=== PATIENT | male | born 1955 | race Caucasian/White ===

== ENCOUNTER → 2017-11-29 12:41 | Outpatient (CLI) | payer OTHER, SELFPAY | PROVIDERS: Family Provider Internal Medicine; PCP Internal Medicine; Visit Provider Internal Medicine | DX: R69 Illness, unspecified (principal) | CPT/HCPCS: 82140 ==

== ENCOUNTER → 2017-12-30 11:49 | Outpatient (CLI) | payer MEDICAID, SELFPAY ==
[2017-12-30 14:03] LABS: Absolute Lymphocyte Count 1.16 X10^3/ul (0.83-4.51); Absolute Neutrophil Count 1.6 X10^3/uL (2.0-7.7); Basophil# 0.04 X10^3/uL; Basophil% 1.2 % (0-1); Eosinophil# 0.21 X10^3/uL; Eosinophils% 6.1 % (0-5); Hematocrit 43.1 % (40-54); Hemoglobin 14.3 g/dl (13.0-16.5); Lymphocyte # 1.16 X10^3/ul (4.0); Lymphocyte % 33.8 % (19-41); Mean Corp Hgb Conc 33.2 g/gl (32-36); Mean Corpuscular Hgb 36.4 pg (27.0-32.0); Mean Corpuscular Volume 109.7 fL (80-94); Mean Platelet Vol. 9.5 fl (6.2-12.0); Monocyte# 0.43 X10^3/uL; Monocyte% 12.5 % (0-10); Neutrophil # 1.58 X10^3/uL (2.7-7.7); Neutrophil % 46.1 % (47-70); Platelet Count 173 K/mm3 (150-450); RBC Distribution Width CV 14.8 % (11.6-14.6); RBC Distribution Width SD 59.7 fl (35.1-43.9); Red Blood Count 3.93 M/mm3 (4.6-6.2); White Blood Count 3.4 K/mm3 (4.4-11.0)
[2017-12-30 14:16] LABS: POSITIVE COUNT NO; POSITIVE DIFFERENTIAL NO; POSITIVE MORPHOLOGY NO
[2017-12-30 14:17] LABS: ALB/GLOB Ratio 0.9 RATIO (0.9-2.4); AST(SGOT) 390 U/L (15-37); Alanine Aminotransfer ALT/SGPT 137 U/L (16-61); Albumin, Serum 3.6 g/dL (3.2-5.0); Alkaline Phosphatase 172 U/L (45-117); Anion Gap 8 (5-15); BUN 8 mg/dL (7-18); BUN/Creat Ratio 6.8 RATIO (10-20); Calcium,Total 10.3 mg/dL (8.5-10.1); Chloride 104 mmol/L (98-107); Creatinine, Serum 1.17 mg/dL (0.70-1.30); EST Glomerular Filtration Rate 68 mL/min (>60); Est Glom Filt Rate - Afr Amer 82 mL/min (>60); Globulin 4.1 g/dL (2.2-4.2); Glucose 97 mg/dL (74-106); Potassium 3.6 mmol/L (3.5-5.1); Protein, Total 7.7 g/dL (6.4-8.2); Sodium Level 141 mmol/L (136-145)
== END ==
PROVIDERS: Family Provider Internal Medicine; PCP Internal Medicine; Visit Provider Dermatology Pediatric Dermatology
DX: L30.9 Dermatitis, unspecified (principal)
CPT/HCPCS: 36415; 80053; 85025

== ENCOUNTER → 2018-01-08 14:04 | Outpatient (CLI) | payer OTHER, MEDICAID, SELFPAY ==
--- NOTE | 2018-01-08 14:07 | VDLE_ITS ---
Reason For Study: edema RIGHT LEFT GSV is normal. GSV is normal. CFV is compressible, spontaneous, phasic, CFV is compressible, spontaneous, phasic, competent and demonstrates normal competent, and demonstrates normal augmentation. augmentation. FV is compressible, spontaneous, phasic, FV is compressible, spontaneous, phasic, competent and demonstrates normal competent and demonstrates normal augmentation. augmentation. POP V is compressible, spontaneous, phasic, POP V is compressible, spontaneous, phasic, competent and demonstrates normal competent and demonstrates normal augmentation. augmentation. T/P Trunk is compressible. T/P Trunk is compressible. PTV is compressible. PTV is compressible. RT PerV is compressible. LT PerV is compressible. Procedure Exam performed in department. The exam was diagnostic. A preliminary report was called and/or faxed to Sang Ambriz. Interpretation Summary Deep veins of the lower extremities are bilaterally patent and compressible segmentally. There is no evidence of deep vein thrombosis on either side. Valvular competence appears intact within the proximal deep venous systems bilaterally. The greater saphenous veins appear bilaterally patent and compressible segmentally. Mrdering Physician: Pb, Performed By: Ryan Rothman RVT
== END ==
PROVIDERS: Family Provider Physician Assistant; PCP Physician Assistant; Visit Provider Physician Assistant
DX: R60.0 Localized edema (principal)
CPT/HCPCS: 93970

== ENCOUNTER 2020-08-03 17:31 | Emergency (ER) | payer MEDICAID, SELFPAY ==
[2020-08-03 17:32] VITALS: BP 160/97; PULSE 117; RESP 16; TEMP 36.6; O2SAT 97; BMI 19.0
--- NOTE | 2020-08-03 17:39 | ED.RN ---
PER PT [facility]
--- NOTE | 2020-08-03 17:51 | EKG12_ITS ---
Test Reason : CONFUSION Blood Pressure : / mmHG Vent. Rate : 098 BPM Atrial Rate : 098 BPM P-R Int : 116 ms QRS Dur : 064 ms QT Int : 354 ms P-R-T Axes : 047 018 067 degrees QTc Int : 451 ms Normal sinus rhythm Normal ECG Confirmed by REESE OCONNOR, JIE ([id number]), photography editor DONALD FRIEDMAN ([id number]) on 08/10/2020 12:50:09 P M Referred By: JULIO Confirmed By:EDELMIRA LEIGH MD
--- NOTE | 2020-08-03 17:51 | CT_ITS ---
STUDY: CT BRAIN WITHOUT CONTRAST REASON FOR EXAM: Male, 65 years old. Confusion. RADIATION DOSAGE (If Supplied By Facility): CTDIvol = ( 44.99 ) mGy, DLP = ( 863.60 ) mGycm TECHNIQUE: Transaxial CT imaging of the brain was performed without administration of intravenous contrast material. Individualized dose optimization techniques were used for this CT. COMPARISON: No relevant priors. FINDINGS: Normal soft tissue structures. Normal calvarium. There is mild age-appropriate cerebral atrophy with widening of the extra-axial spaces and ventricular dilatation. Normal white matter tracts of the cerebral hemispheres. Normal basal ganglia and thalami. Normal brainstem. Normal cerebellum. There is no intracranial hemorrhage. There are no findings of an acute ischemic infarction. Normal visualized paranasal sinuses. CT/Brain/Head without Contrast IMPRESSION: No acute intracranial or calvarial abnormality. Electronically Signed: Xavier Dupont DO at 18:29 EDT Tel [phone], Service support ,
--- NOTE | 2020-08-03 17:54 | ED.RN ---
[facility] stated if he is cleared to return to their facility to contact them and they would send a cab for him.
--- NOTE | 2020-08-03 17:56 | ED.RN ---
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 [facility] WANT[facility] CONTACTED AND WAS GOING TO COME EVALUATE PT.
--- NOTE | 2020-08-03 17:58 | NURSING ---
NO OLD EKGS
--- NOTE | 2020-08-03 18:06 | ED.VIS.GEN ---
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 Patient told me that he is currently staying at [address] what in fact he is living at [facility]. His mother was recently put into a dementia facility. He was removed from the household so it could be sold. At that time he was brought to the [facility] by his neighbor. Since being there he has been having a hard time finding the bathroom. Has been repeating himself constantly. Apparently had difficulty opening a door. Patient states he did fall last night. He believes that he struck the right side of his head. He denies being on anticoagulation. He did have a headache last night but this is since resolved. Denies any headache or vision changes. No issues with word finding. No chest pain or shortness of breath. No abdominal pain or back pain. No neck pain. Patient has no complaints at time of arrival. He states he does drink multiple beers per day. He has not drank over the past 3 days. He does occasionally smoke marijuana. Patient does have stool down his leg. He believes that he has an episode of colitis. He has not any fevers or chills. No urinary symptoms. Did have one episode of diarrhea today. Past Medical History - Allergies and Home Meds Allergies/Adverse Reactions: Allergies No Known Allergies Allergy (Verified 08/03/20 17:34) Primary Care Physician: Jackie Ambriz PA [Primary Care Provider] - 2 Days Prior records reviewed: Yes Smoking Status: Current every day smoker Alcohol: Heavy Drugs: Marijuana Review of Systems All systems negative except as indicated General: Denies: Chills, Fever, Sweats Eyes: Denies: Visual changes - bilaterally, Diplopia ENT: Denies: Rhinorrhea, Sore throat Cardiovascular: Denies: Chest pain, Palpitations Respiratory: Denies: Dyspnea, Cough, Dyspnea on exertion Gastrointestinal: Reports: Diarrhea. Denies: Abdominal pain, Nausea, Vomiting Genitourinary: Denies: Dysuria, Hematuria, Frequency Musculoskeletal: Denies: Back pain, Extremity Pain Skin: Denies: Rash, Wounds Neurological: Denies: Headache, Weakness, Numbness Psych: Denies: Suicidal thoughts, Suicidal ideations Physical Exam Vital Signs/Narrative: Vital Signs Temp Pulse Resp BP Pulse Ox 08/03/20 17:32 98 F 117 H 16 160/97 H 97 Inital Vital Signs reviewed: Yes General: Well nourished, Well developed, Unkempt, No Acute Distress Head: Normocephalic, Atraumatic Eyes: Perrl, EOMI ENT: Moist mucous membranes, No rhinorrhea Neck: Supple, Nontender Cardiovascular: Regular rate, Regular rhythm, No murmurs Respiratory: No distress, CTA bilaterally, Chest nontender Abdomen: Soft, Nontender, Nondistended, Normal bowel sounds Back: Nontender, Normal Inspection Extremities: Nontender, No edema Skin: Normal color, No rash Neurological: Alert, Oriented x3, Cranial nerves II-XII grossly intact, Normal Strength, Normal Sensation Psychological: Normal affect, Normal Mood, - - Patient answers questions appropriately. He is cooperative with exam. Diagnostic/Tx/Re-eval - EKG Initial EKG Interpretation: - - Rate of 98 bpm and normal sinus rhythm. Normal intervals. Normal axis. No ST elevations or depressions appreciated. No T wave abnormalities. - Medical Decision Making Patient presents to the ED for wellness check as he was confused at the [facility] [employer]. He states he did have a fall yesterday. Will check a CT scan of his head along with basic lab work. Patient does not appear to be confused here in the ED besides saying [address] as opposed to the [employer]. He is alert and oriented here. Answering questions appropriately. CT scan of his head did not reveal any acute intracranial abnormality. Lab work did not show any significant abnormality besides a low hemoglobin. Patient was not aware of this before in the past. Denies any black tarry stools. He needs to follow-up with us by his PCP. Could relate to his alcohol use. Otherwise no reason to keep patient here in the hospital. [facility] just wanted to have them checked out and they are agreeable to taking him back to their facility at this time. Warning signs and symptoms for which to return to the ED are reviewed with him. Patient will be discharged home in stable condition. ED Disposition - Plan for ED Patient: Disposition: Home or Assisted Living Diagnosis: Confusion, Anemia Instructions: ED Confusion Referrals: Jackie Ambriz PA [Primary Care Provider] - 2 Days
[2020-08-03 18:29] LABS: ALB/GLOB Ratio 0.9 RATIO (0.9-2.4); AST(SGOT) 19 U/L (15-37); Alanine Aminotransfer ALT/SGPT 19 U/L (16-61); Albumin, Serum 3.7 g/dL (3.2-5.0); Alkaline Phosphatase 100 U/L (45-117); Anion Gap 9 (5-15); BUN 13 mg/dL (7-18); Calcium,Total 9.9 mg/dL (8.5-10.1); Chloride 103 mmol/L (98-107); Creatinine, Serum 1.08 mg/dL (0.70-1.30); EST Glomerular Filtration Rate 73 mL/min (>60); Est Glom Filt Rate - Afr Amer 89 mL/min (>60); Estimated Creatinine Clearance 62.88 ml/min; Glucose 86 mg/dL (74-106); Potassium 4.3 mmol/L (3.5-5.1); Protein, Total 7.7 g/dL (6.4-8.2); Sodium Level 137 mmol/L (136-145)
[2020-08-03 18:35] LABS: Alcohol, Blood (Medical)-Serum < 3.0 mg/dL
[2020-08-03 19:00] LABS: Absolute Lymphocyte Count 1.28 X10^3/uL (0.83-4.51); Absolute Neutrophil Count 7.2 X10^3/uL (2.0-7.7); Basophil# 0.06 X10^3/uL; Basophil% 0.6 % (0-1); Eosinophil# 0.01 X10^3/uL; Eosinophils% 0.1 % (0-5); Hematocrit 31.5 % (40-54); Hemoglobin 9.6 g/dL (13.0-16.5); Lymphocyte # 1.28 X10^3/ul (4.0); Lymphocyte % 13.2 % (19-41); Mean Corp Hgb Conc 30.5 g/dL (32-36); Mean Corpuscular Hgb 24.2 pg (27.0-32.0); Mean Corpuscular Volume 79.5 fL (80-94); Mean Platelet Vol. 9.1 fl (6.2-12.0); Monocyte# 1.04 X10^3/uL; Monocyte% 10.8 % (0-10); NRBC Flagged by Analyzer 0 % (0-5); Neutrophil # 7.24 X10^3/uL (2.7-7.7); Neutrophil % 74.9 % (47-70); Platelet Count 516 K/mm3 (150-450); RBC Distribution Width CV 18.6 % (11.6-14.6); RBC Distribution Width SD 53.5 fl (35.1-43.9); Red Blood Count 3.96 M/mm3 (4.6-6.2); White Blood Count 9.7 K/mm3 (4.4-11.0)
[2020-08-03 19:12] LABS: Color, Urine Yellow (Yellow); Glucose, Dipstick Normal (Normal); Ketone-Dipstick 15 mg/dl (Negative); Leukocyte Esterase-Dipstick 25 /ul (Negative); Nitrite-Dipstick Negative (Negative); Occult Blood-Urine Negative /ul (Negative); Protein-Dipstick 15 mg/dl (Negative); Urine Bilirubin Dipstick Negative (Negative); Urine Clarity Sl. Cloudy (Clear); Urine Urobilinogen 1 mg/dl (Normal)
[2020-08-03 19:25] LABS: Amphetamine Urine VISTA NEGATIVE (<1000 ng/mL); Barbiturate Urine VISTA NEGATIVE (< 200 ng/mL); Benzodiazepine Urine VISTA NEGATIVE (< 200 ng/mL); Cocaine Urine VISTA NEGATIVE (< 300 ng/mL); Ecstacy Urine VISTA NEGATIVE (< 500 ng/mL); Methadone Urine VISTA NEGATIVE (< 300 ng/mL); PCP Urine VISTA NEGATIVE (< 25 ng/mL); THC Urine VISTA NEGATIVE (< 50 ng/mL); Vista UDS pH Range 6
--- NOTE | 2020-08-03 19:47 | CM.ED ---
SOCIAL WORK Informant: Charge Nurse, Shaylee Reason for Consult: Discharge planning Upon patient's arrival to ER, nursing received call from [facility] regarding patient. This worker followed up with [facility], spoke with Nehal. Per Nehal, patient came to the [facility] yesterday. Patient was brought to the [facility] by a neighbor. Nehal reports patient had been disoriented and confused. Patient had to be shown multiple times where the bathroom and dorm was located. Nehal states her boss had spoken with Kin with [facility] who states patient is on her caseload and last met with patient in May. Per Nehal, Kin had noted that patient's mentation was normal. This worker met with patient in room. Introduced role and reason for referral. Patient noted to have stool on leg of pants sitting on chair. Patient states has been staying at the [facility] for under a week. Patient states prior to staying at the [facility], had lived with his mother in [place]. Patient reports mother is currently living in a jail. Patient states primary care doctor is through the [facility], Dr. Ambriz. Patient admits to history of depression and states doesn't everyone get depressed from time to time. Patient states depression is not treated. Patient admits to history of alcohol and marijuana use and states last drink was a few days ago. Patient gave permission for this worker to update [facility] on status as he wishes to return to the [facility] upon discharge. Collaboration with Dr. Villa. Patient is medically cleared. Call to [facility] to update on the above. [facility] will accept patient back to halfway and will set up transport through [employer]. Call to Kin with [facility]. Left message with this worker's call back information. Plan: Return to the [facility] Chad Pretty, LUNCHROOM OPERATOR, SECTION GANG
== END 2020-08-03 20:01 | disposition home or self-care (01) ==
PROVIDERS: Emergency Provider Emergency Medicine; PCP Physician Assistant
DX: R41.0 Disorientation, unspecified (principal); D64.9 Anemia, unspecified; F17.200 Nicotine dependence, unspecified, uncomplicated
CPT/HCPCS: 36415; 70450; 80048; 80053; 80307; 80320; 81002; 84484; 85025; 93005; 99283; G0480

== ENCOUNTER 2020-08-25 12:56 | Emergency (ER) | payer MEDICAID, SELFPAY ==
[2020-08-25 12:57] VITALS: BP 147/95; PULSE 79; RESP 17; TEMP 36.2; O2SAT 100; BMI 20.9
--- NOTE | 2020-08-25 13:16 | ED.DCSUM_ITS ---
History of Present Illness <Ant De Leon - Last Filed: 08/25/20 17:09> Informant: Patient Onset: Weeks Narrative: 65-year-old male with past medical history of hypertension, chronic alcoholism presents with diarrhea and confusion. He has been having nonbloody diarrhea almost daily for the last month. He also occasionally feels confused like he does not remember where he is going or where he is at. He states he drinks 2 beers on weekdays and 10-12 beers on weekend days. Denies any change in alcohol use. Admits to unintentional 50 lb weight loss over last 6 months. Denies fevers, chills, nausea, vomiting, chest pain, cough, or abdominal pain. He is not sure if he has liver disease. <Ruthann Caballero - Last Filed: 08/25/20 17:49> Chief Complaint: Diarrhea Past Medical History <Ant De Leon - Last Filed: 08/25/20 17:09> Lives: - - Hypertension Smoking Status: Current every day smoker <Ruthann Caballero - Last Filed: 08/25/20 17:49> - Allergies and Home Meds Allergies/Adverse Reactions: Allergies iodine Adverse Reaction (Verified 08/25/20 12:56) Rash GANDARA MY SKIN Primary Care Physician: Jackie Ambriz, PA [Primary Care Provider] - Review of Systems General: Denies: Chills, Fever, Sweats Eyes: Denies: Visual changes - bilaterally, Diplopia ENT: Denies: Rhinorrhea, Sore throat Cardiovascular: Denies: Chest pain, Palpitations Respiratory: Denies: Dyspnea, Cough, Dyspnea on exertion Gastrointestinal: Reports: Diarrhea. Denies: Abdominal pain, Nausea, Vomiting, Constipation, Melena, Hematochezia Genitourinary: Denies: Dysuria, Hematuria, Frequency Skin: Reports: Wounds. Denies: Rash Neurological: Denies: Headache, Weakness, Numbness <Ruthann Caballero - Last Filed: 08/25/20 17:49> Physical Exam Vital Signs/Narrative: Vital Signs Pulse Resp BP Pulse Ox 08/25/20 16:31 87 16 152/91 H 99 08/25/20 15:22 16 <Ant De Leon - Last Filed: 08/25/20 17:09> Vital Signs/Narrative: Vital Signs Temp Pulse Resp BP Pulse Ox 08/25/20 12:57 97.2 F L 79 17 147/95 H 100 Inital Vital Signs reviewed: Yes General: Well nourished, Well developed, No Acute Distress Head: Normocephalic, Atraumatic Eyes: EOMI ENT: Moist mucous membranes, No rhinorrhea Neck: Supple, Nontender Cardiovascular: Regular rate, Regular rhythm, No murmurs Respiratory: No distress, CTA bilaterally, Chest nontender Abdomen: Soft, Nontender, Nondistended, Normal bowel sounds Skin: Normal color Neurological: Alert, Oriented x3, Cranial nerves II-XII grossly intact, Normal Strength, Normal Sensation Psychological: Normal affect, Normal Mood <Ruthann Caballero - Last Filed: 08/25/20 17:49> Diagnostic/Tx/Re-eval - Medical Decision Making I supervised the PA and have performed my own pertinent history and physical. Results and treatment plan were discussed. HPI: Patient is a poor informant. Adolfo Ambriz called and reports that he saw the patient for the first time in 2 years today. Patient was very confused. Patient relays to me that he does feel confused and it has been that way for a while. He does have a history of alcoholism and tells me that he has been drinking again for approximately 8 months. He reports that he is currently staying at [address]. Only other complaint is diarrhea. PE: Vitals: Stable. Afebrile. General: Well-nourished and well-developed. Head: Normocephalic atraumatic. Neck: Supple, no lymphadenopathy. No JVD. Nontender. Cardiovascular: Regular rate and rhythm. No murmurs. Respiratory: No respiratory distress. Clear to auscultation bilaterally. Abdominal: Soft, nontender, nondistended, normal bowel sounds. No guarding, rebound, or peritoneal signs. Back: Nontender. Extremities: Nontender, no edema. Skin: Normal color, no rash. Neurologic: Alert and oriented ?3. Cranial nerves II through XII are intact. Normal strength and sensation. Psych: Normal affect. Emergency Department course: Patient was discussed with case management. They have seen him and actually agreed of what he is set on his history is not true. The patient is not staying at [address] he staying at [facility]. She contacted the [facility] and they are fine taking him back. Treatment Plan: [facility] contacted [facility] and they report that they will place him in 3 days. They are happy to take him in the meantime. I suspect that his confusion is chronic and due to his alcohol abuse. I do not feel that admitting him to the hospital is indicated. This note was generated with [employer] dictation software. It may contain incorrect words, spelling, and punctuation that were not noted in review of the chart prior to signing. <Ant De Leon - Last Filed: 08/25/20 17:09> Clinical Impression(s) from Imaging Studies Brain CT 08/25/20 14:23 IMPRESSION: Chronic involutional changes of the brain. Electronically Signed: Roesndo Deshaun, at 15:17 EDT , Service support , Laboratory Data 08/25/20 08/25/20 08/25/20 13:20 13:20 13:25 WBC 7.7 RBC 4.26 L Hgb 9.9 L Hct 33.6 L MCV 78.9 L MCH 23.2 L MCHC 29.5 L RDW Std Deviation 50.8 H RDW Coeff of Cassandra 17.7 H Plt Count 497 H MPV 8.5 Immature Gran % (Auto) 0.400 Neut % (Auto) 65.7 Lymph % (Auto) 20.6 Carlton % (Auto) 10.7 H Eos % (Auto) 1.7 Baso % (Auto) 0.9 Absolute Neuts (auto) 5.0 Absolute Lymphs (auto) 1.58 Nucleated RBC % 0 Sodium 137 Potassium 4.2 Chloride 105 Carbon Dioxide 26.0 Anion Gap 6 BUN 9 Creatinine 1.06 Estim Creat Clear Calc 70.48 Est GFR (MDRD) Af Amer 91 Est GFR (MDRD) Non-Af 75 BUN/Creatinine Ratio 8.5 L Glucose 90 Calcium 9.5 Total Bilirubin 0.40 AST 14 L ALT 18 Alkaline Phosphatase 93 Ammonia < 10.0 L Total Protein 7.6 Albumin 3.6 Globulin 4.0 Albumin/Globulin Ratio 0.9 Lipase 129 - Medical Decision Making Presented with chronic diarrhea and complaint of intermittent confusion. He appears well nontoxic. Vital signs within normal limits. AOx4 here with a normal neurological exam. After conversations with him he did seem more confused as he keeps stating he is staying at [facility] but he is known to be staying at [facility]. Labs show chronic anemia with hemoglobin of 9.9, otherwise normal. Ammonia within normal limits. With serial negative abdominal exams there is no indication for imaging. CT brain shows chronic changes. At this time I feel he is stable for outpatient follow-up for his chronic diarrhea. Patient was discussed with case management who contacted [facility]. [facility] is contacting [facility] and they state they are fine with having him there this weekend and [facility] will place him on Friday. At this time he has no indication for admission to the hospital. He was discharged back to [facility] in stable condition. <Ruthann Caballero - Last Filed: 08/25/20 17:49> ED Disposition <Ant De Leon - Last Filed: 08/25/20 17:09> <Ruthann Caballero - Last Filed: 08/25/20 17:49> - Plan for ED Patient: Disposition: Home or Assisted Living Diagnosis: Chronic diarrhea Instructions: Treating Diarrhea Referrals: Jackie Ambriz, PA [Primary Care Provider] -
[2020-08-25 13:35] LABS: Absolute Lymphocyte Count 1.58 X10^3/uL (0.83-4.51); Basophil# 0.07 X10^3/uL; Basophil% 0.9 % (0-1); Eosinophil# 0.13 X10^3/uL; Eosinophils% 1.7 % (0-5); Hematocrit 33.6 % (40-54); Hemoglobin 9.9 g/dL (13.0-16.5); Lymphocyte # 1.58 X10^3/ul (4.0); Lymphocyte % 20.6 % (19-41); Mean Corp Hgb Conc 29.5 g/dL (32-36); Mean Corpuscular Hgb 23.2 pg (27.0-32.0); Mean Corpuscular Volume 78.9 fL (80-94); Mean Platelet Vol. 8.5 fl (6.2-12.0); Monocyte# 0.82 X10^3/uL; Monocyte% 10.7 % (0-10); NRBC Flagged by Analyzer 0 % (0-5); Neutrophil # 5.04 X10^3/uL (2.7-7.7); Neutrophil % 65.7 % (47-70); Platelet Count 497 K/mm3 (150-450); RBC Distribution Width CV 17.7 % (11.6-14.6); RBC Distribution Width SD 50.8 fl (35.1-43.9); Red Blood Count 4.26 M/mm3 (4.6-6.2); White Blood Count 7.7 K/mm3 (4.4-11.0)
[2020-08-25 13:48] LABS: ALB/GLOB Ratio 0.9 RATIO (0.9-2.4); AST(SGOT) 14 U/L (15-37); Alanine Aminotransfer ALT/SGPT 18 U/L (16-61); Albumin, Serum 3.6 g/dL (3.2-5.0); Alkaline Phosphatase 93 U/L (45-117); Anion Gap 6 (5-15); BUN 9 mg/dL (7-18); BUN/Creat Ratio 8.5 RATIO (10-20); Calcium,Total 9.5 mg/dL (8.5-10.1); Chloride 105 mmol/L (98-107); Creatinine, Serum 1.06 mg/dL (0.70-1.30); EST Glomerular Filtration Rate 75 mL/min (>60); Est Glom Filt Rate - Afr Amer 91 mL/min (>60); Estimated Creatinine Clearance 70.48 ml/min; Glucose 90 mg/dL (74-106); Lipase 129 U/L (73-393); Potassium 4.2 mmol/L (3.5-5.1); Protein, Total 7.6 g/dL (6.4-8.2); Sodium Level 137 mmol/L (136-145)
[2020-08-25 14:06] LABS: Ammonia < 10.0 umol/L (11-32)
--- NOTE | 2020-08-25 14:23 | CT_ITS ---
STUDY: CT BRAIN WITHOUT CONTRAST REASON FOR EXAM: Male, 65 years old. Confusion, weight loss, ETOH abuse, hypertension. RADIATION DOSAGE (If Supplied By Facility): CTDIvol = ( 44.99 ) mGy, DLP = ( 846.73 ) mGycm TECHNIQUE: Transaxial CT imaging of the brain was performed without administration of intravenous contrast material. Individualized dose optimization techniques were used for this CT. COMPARISON: Comparison is made with prior study dated 07/14/2020. FINDINGS: Normal soft tissue structures. Normal calvarium. There is mild cerebral atrophy with widening of the extra-axial spaces and ventricular dilatation. Normal white matter tracts of the cerebral hemispheres. Normal basal ganglia and thalami. Normal brainstem. Normal cerebellum. There is no intracranial hemorrhage. There are no findings of an acute ischemic infarction. Atherosclerotic calcification of the cavernous portions of the internal carotid arteries bilaterally. Normal visualized paranasal sinuses. CT/Brain/Head without Contrast IMPRESSION: Chronic involutional changes of the brain. Electronically Signed: Rosendo Meade, at 15:17 EDT , Service support ,
[2020-08-25 15:22] VITALS: RESP 16
[2020-08-25 16:31] VITALS: BP 152/91; PULSE 87; RESP 16; O2SAT 99
[2020-08-25 17:10] VITALS: RESP 16
== END 2020-08-25 17:12 | disposition home or self-care (01) ==
PROVIDERS: Emergency Provider Physician Assistant; PCP Physician Assistant
DX: K52.9 Noninfective gastroenteritis and colitis, unspecified (principal); I10 Essential (primary) hypertension; F10.20 Alcohol dependence, uncomplicated; Y90.9 Presence of alcohol in blood, level not specified; F17.200 Nicotine dependence, unspecified, uncomplicated
CPT/HCPCS: 70450; 80048; 80053; 82140; 83690; 85025; 99281; 99284; A4216

== ENCOUNTER 2020-10-14 23:04 | Emergency (ER) | payer MEDICAID, SELFPAY ==
[2020-10-14 23:05] VITALS: BP 144/89; PULSE 71; RESP 10; TEMP 36.9; O2SAT 98; BMI 21.9
--- NOTE | 2020-10-14 23:06 | EKG12_ITS ---
Test Reason : CHEST OTHER Blood Pressure : / mmHG Vent. Rate : 076 BPM Atrial Rate : 076 BPM P-R Int : 120 ms QRS Dur : 070 ms QT Int : 386 ms P-R-T Axes : 034 039 063 degrees QTc Int : 434 ms Normal sinus rhythm Normal ECG Confirmed by LEANDRA OCONNOR, CHA ([id number]), story editor DONALD FRIEDMAN ([id number]) on 10/17/2020 8:42:23 AM Referred By: JESUS Confirmed By:CHA MOBLEY MD
[2020-10-14 23:09] VITALS: O2SAT 99
[2020-10-14] MEDS: Aspirin 81 MG TAB.CHEW 324 MG PO (23:14)
--- NOTE | 2020-10-14 23:20 | RAD_ITS ---
STUDY: X-RAY CHEST REASON FOR EXAM: Male, 65 years old. Bilateral rib pain starting 1.5 hrs ago. Painful to take deep inspiration for x-ray. No other chest complaints. TECHNIQUE: Single frontal view of the chest. COMPARISON: None. FINDINGS: There is no focal consolidation. Normal size heart. Normal mediastinum and graeme. Normal visualized pulmonary arteries. Normal visualized aortic arch and descending thoracic aorta. Normal visualized thoracic spine. Normal visualized ribs, clavicles, and shoulders. There is no demonstrated abnormality of the visualized soft tissue structures of the upper abdomen. RAD/Chest 1 View (Portable) IMPRESSION: No acute cardiopulmonary process. Electronically Signed: Jess Bermeo MD at 23:41 EST Tel , Service support ,
[2020-10-14 23:37] LABS: Absolute Lymphocyte Count 1.92 X10^3/uL (0.83-4.51); Absolute Neutrophil Count 3.7 X10^3/uL (2.0-7.7); Basophil# 0.09 X10^3/uL; Basophil% 1.4 % (0-1); Eosinophil# 0.01 X10^3/uL; Eosinophils% 0.2 % (0-5); Hematocrit 31.4 % (40-54); Hemoglobin 9.2 g/dL (13.0-16.5); Lymphocyte # 1.92 X10^3/ul (4.0); Lymphocyte % 29.9 % (19-41); Mean Corp Hgb Conc 29.3 g/dL (32-36); Mean Corpuscular Hgb 22.2 pg (27.0-32.0); Mean Corpuscular Volume 75.8 fL (80-94); Mean Platelet Vol. 8.9 fl (6.2-12.0); Monocyte# 0.65 X10^3/uL; Monocyte% 10.1 % (0-10); NRBC Flagged by Analyzer 0 % (0-5); Neutrophil # 3.68 X10^3/uL (2.7-7.7); Neutrophil % 57.3 % (47-70); Platelet Count 437 K/mm3 (150-450); RBC Distribution Width CV 18.6 % (11.6-14.6); RBC Distribution Width SD 50.1 fl (35.1-43.9); Red Blood Count 4.14 M/mm3 (4.6-6.2); White Blood Count 6.4 K/mm3 (4.4-11.0)
[2020-10-14 23:40] LABS: Anion Gap 4 (5-15); BUN 14 mg/dL (7-18); BUN/Creat Ratio 13.3 RATIO (10-20); Chloride 109 mmol/L (98-107); Creatinine, Serum 1.05 mg/dL (0.70-1.30); EST Glomerular Filtration Rate 76 mL/min (>60); Est Glom Filt Rate - Afr Amer 92 mL/min (>60); Estimated Creatinine Clearance 74.66 ml/min; Glucose 92 mg/dL (74-106); Potassium 4.3 mmol/L (3.5-5.1); Sodium Level 141 mmol/L (136-145)
--- NOTE | 2020-10-15 00:09 | ED.DCSUM_ITS ---
- ER Visit Summary Date of Service: 10/15/20 Chief Complaint: Bilateral rib cage pain History of Present Illness: The patient is a 65 M history of hypertension, high cholesterol and anemia. Patient smokes a pack of cigarettes a day. He has no known prior cardiac history. He has never had a heart cath. Currently is residing at the [facility]. Patient states he fell 2 days ago landing on asphalt. Thought it was fine. Tonight he awoke from sleep about 2 hours prior to arrival with bilateral rib cage pain. Denies any shortness of breath. No history of DVT or PE. No recent travel, surgery or immobilization. No hemoptysis. No leg pain or swelling. There is no radiation of the pain. It is worse with movement. He denies any fever or chills. Physical Examination: Older male vital signs stable afebrile. Pulse ox 99% on room air no signs of hypoxia. HEENT exam unremarkable. Neck nontender no lymphadenopathy. Lungs clear to auscultation bilaterally. Heart regular rhythm rate about 80 no murmur. Chest wall is reproducibly tender along both rib cages primarily anterior lateral in the lower aspects. There is no crepitance or subcu air. There is no appreciable bruising. There is no bony deformity. It is definitely reproducible pain however. Abdomen soft nontender normal bowel sounds no peritoneal signs. No signs of trauma or bruising to his abdomen. Pelvic girdle intact. Patient moving all 4 extremities. Neurovascular intact. Calves are nontender without edema. Neurologically is awake alert with no focal motor deficits. When I had him sit up to evaluate his back he had significant pain in his rib cage bilaterally. Spine is nontender. Test Results: CBC shows acute on chronic anemia with a white count of 6. Hemoglobin 9.2 which is his baseline. Electrolytes are unremarkable normal creatinine and gap. Troponin is normal. EKG shows normal sinus rhythm rate of 76 with no acute signs of KS or ischemia. Chest x-ray portable 1 view interpreted by myself shows no acute abnormality. Normal cardiac silhouette. Normal mediastinum and aorta. Normal rib cage. No obvious fracture seen. No pneumothorax or infiltrates. Radiologist also read the film and agrees. Parth EKG shows normal sinus rhythm rate of 61 with no acute signs of KS or ischemia no change from the first. Emergency Department Course and Treatment: Clinically patient has reproducible bilateral rib cage pain after recent fall. He will undergo a cardiac work-up due to his age and risk factors. Clinically I think this is musculoskeletal pain. 1 [place] p.o. here for his chest wall pain. Repeat exam patient is doing well at 1:53 AM. Has reproducible pain. He and I went over all his test results. Repeat EKG again shows a normal sinus rhythm with no acute signs of KS or ischemia no change from the prior. Treatment Plan: Ice to his rib cage. Tylenol and Motrin for pain. Follow-up with his primary care provider if not improving. Patient I did discuss the chance that he could have rib fractures that are not visualized on the chest x- ray. Disposition: discharge Impression: Bilateral musculoskeletal rib cage pain status post fall History of hypertension history of chronic anemia This note was generated with [employer] dictation software. It may contain incorrect words, spelling, and punctuation that were not noted in review of the chart prior to signing ED Disposition - Plan for ED Patient: Disposition: Home or Assisted Living Instructions: ED Strain Chest Wall Referrals: Jackie Ambriz PA [Primary Care Provider] - 1 Week if not improving Additional Instructions: Ice to your rib cage. Motrin and Tylenol for pain. Follow-up with your primary care provider if not improving. All your test tonight were unremarkable other than your chronic low blood counts. There is no signs of heart attack. There is no signs of any obvious cracked ribs on the chest x-ray. Sometimes she can have broken ribs that are not seen on the x-ray.
--- NOTE | 2020-10-15 01:40 | EKG12_ITS ---
Test Reason : REPEAT CP Blood Pressure : / mmHG Vent. Rate : 061 BPM Atrial Rate : 061 BPM P-R Int : 124 ms QRS Dur : 080 ms QT Int : 420 ms P-R-T Axes : 046 022 064 degrees QTc Int : 422 ms Sinus rhythm with Premature supraventricular complexes Otherwise normal ECG Confirmed by LEANDRA OCONNOR, CHA ([id number]), film and video editor DONALD FRIEDMAN ([id number]) on 10/17/2020 8:42:05 AM Referred By: JESUS Confirmed By:CHA MOBLEY MD
[2020-10-15 01:55] VITALS: BP 129/99; PULSE 76; RESP 16; O2SAT 100
--- NOTE | 2020-10-15 01:56 | ED.DEP ---
ED Disposition - Plan for ED Patient: Disposition: Home or Assisted Living Instructions: ED Strain Chest Wall Referrals: Jackie Ambriz PA [Primary Care Provider] - 1 Week if not improving Additional Instructions: Ice to your rib cage. Motrin and Tylenol for pain. Follow-up with your primary care provider if not improving. All your test tonight were unremarkable other than your chronic low blood counts. There is no signs of heart attack. There is no signs of any obvious cracked ribs on the chest x-ray. Sometimes she can have broken ribs that are not seen on the x-ray.
[2020-10-15] MEDS: HYDROcodone Bitartrate/Apap 5/325 Tablet PO (02:06)
--- NOTE | 2020-10-15 02:23 | ED.RN ---
TIFF WAS CALLED FOR PT TO GET BACK TO [facility].
[2020-10-15 02:25] VITALS: BP 159/89; PULSE 72; RESP 16; O2SAT 100
== END 2020-10-15 02:25 | disposition home or self-care (01) ==
PROVIDERS: Emergency Provider Emergency Medicine; PCP Physician Assistant
DX: S20.213A Contusion of bilateral front wall of thorax, initial encounter (principal); W19.XXXA Unspecified fall, initial encounter; Y93.9 Activity, unspecified; Y92.9 Unspecified place or not applicable; Y99.9 Unspecified external cause status; I10 Essential (primary) hypertension; E78.00 Pure hypercholesterolemia, unspecified; D64.9 Anemia, unspecified; F17.210 Nicotine dependence, cigarettes, uncomplicated
CPT/HCPCS: 71045; 80048; 84484; 85025; 93005; 99285; A4216

== ENCOUNTER 2020-10-16 11:31 | Emergency (ER) | payer MEDICAID, SELFPAY ==
[2020-10-16 11:32] VITALS: BP 173/108; PULSE 79; RESP 20; TEMP 36.3; O2SAT 99; BMI 21.4
--- NOTE | 2020-10-16 11:38 | EKG12_ITS ---
Test Reason : PAIN Blood Pressure : / mmHG Vent. Rate : 078 BPM Atrial Rate : 078 BPM P-R Int : 124 ms QRS Dur : 070 ms QT Int : 382 ms P-R-T Axes : 033 010 047 degrees QTc Int : 435 ms Sinus rhythm with Premature atrial complexes with Aberrant conduction Otherwise normal ECG Confirmed by LEANDRA OCONNOR, CHA ([id number]), editor publications DONALD FRIEDMAN ([id number]) on 10/18/2020 12:55:14 PM Referred By: GA Confirmed By:CHA MOBLEY MD
--- NOTE | 2020-10-16 11:45 | ED.VIS.GEN ---
History of Present Illness Chief Complaint: Other, Pain/Inj Informant: Patient Onset: Yesterday Context: Gradual Onset Timing: Continuous Current Severity: Moderate Maximum Severity: Moderate Narrative: The patient is a 65-year-old male that presents to the emergency department by squad. He states that he woke with pain in both ribs. The patient was actually seen here early yesterday morning. At that point, he had a fall with rib pain. Chest x-ray was unremarkable. Screening labs are unremarkable.. He denies cough. He states most of the pain is there when he twists or moves. History is hard to gather from the patient. He does have history of early onset dementia and chronic alcohol abuse. He currently lives at the [facility]. Prior similar symptoms: Yes Recent Illness/Hospitalization: No Past Medical History - Allergies and Home Meds Allergies/Adverse Reactions: Allergies iodine Adverse Reaction (Verified 08/25/20 12:56) Rash GANDARA MY SKIN Primary Care Physician: Jackie Ambriz PA [Primary Care Provider] - Prior records reviewed: Yes Past Medical History: - - Dementia, smoking, hypertension Surgical History: noncontributory Smoking Status: Current every day smoker Review of Systems General: Denies: Chills, Fever, Sweats Eyes: Denies: Visual changes - bilaterally, Diplopia ENT: Denies: Rhinorrhea, Sore throat Cardiovascular: Reports: Chest pain. Denies: Palpitations Respiratory: Reports: Dyspnea. Denies: Cough, Dyspnea on exertion Gastrointestinal: Denies: Abdominal pain, Nausea, Vomiting, Diarrhea, Melena, Hematochezia Genitourinary: Denies: Dysuria, Hematuria, Frequency Musculoskeletal: Denies: Back pain, Extremity Pain Skin: Denies: Rash, Wounds Neurological: Denies: Headache, Weakness, Numbness Physical Exam Vital Signs/Narrative: Vital Signs Temp Pulse Resp BP Pulse Ox 10/16/20 11:32 97.3 F L 79 20 H 173/108 H 99 Inital Vital Signs reviewed: Yes General: Well nourished, Well developed, No Acute Distress Head: Normocephalic, Atraumatic Eyes: Perrl, EOMI ENT: Moist mucous membranes, No rhinorrhea Neck: Supple, Nontender Cardiovascular: Regular rate, Regular rhythm, No murmurs Respiratory: No distress, CTA bilaterally, Chest tenderness Abdomen: Soft, Nontender, Nondistended, Normal bowel sounds Back: Nontender, Normal Inspection Extremities: Nontender, No edema Skin: Normal color, No rash Neurological: Alert, Oriented x3, Cranial nerves II-XII grossly intact, Normal Strength, Normal Sensation Psychological: Normal affect, Normal Mood Diagnostic/Tx/Re-eval Clinical Impression(s) from Imaging Studies Chest CT 10/16/20 12:09 IMPRESSION: Calcified old granulomatous disease. Mild increased markings at the lung bases suggestive of mild scarring. Electronically Signed: Rosendo Meade, at 12:30 EST , Service support , Abnormal Lab Results 10/16/20 10/16/20 11:50 11:50 WBC 6.3 RBC 4.66 Hgb 10.8 L Hct 35.0 L MCV 75.1 L MCH 23.2 L MCHC 30.9 L D RDW Std Deviation 50.3 H RDW Coeff of Cassandra 18.9 H Plt Count 482 H MPV 8.8 Immature Gran % (Auto) 0.500 Neut % (Auto) 64.9 Lymph % (Auto) 20.9 Schleicher % (Auto) 10.5 H Eos % (Auto) 2.2 Baso % (Auto) 1.0 Absolute Neuts (auto) 4.1 Absolute Lymphs (auto) 1.31 Nucleated RBC % 0 Sodium 140 Potassium 4.1 Chloride 108 H Carbon Dioxide 26.0 Anion Gap 6 BUN 11 Creatinine 1.03 Estim Creat Clear Calc 74.24 Est GFR (MDRD) Af Amer 94 Est GFR (MDRD) Non-Af 77 BUN/Creatinine Ratio 10.7 Glucose 90 Calcium 9.8 Total Bilirubin 0.50 AST 5 L ALT 13 L Alkaline Phosphatase 105 Troponin I < 0.015 Total Protein 7.8 Albumin 3.8 Globulin 4.0 Albumin/Globulin Ratio 1.0 - Medical Decision Making The patient presents with reproducible bilateral rib pain. He was here just over 30 hours ago with the same. His work-up at the time was negative. Given the patient's advanced age, history of alcohol abuse, and symptoms I did want to rule out occult pneumothorax or rib fracture. EKG was obtained on arrival. Was unremarkable. Patient underwent CT. There is no pneumothorax, effusion, infiltrate, or occult rib fracture. His pain is controlled. At this point, the patient will be discharged back to the [facility]. I do feel this is entirely muscular. He is comfortable with this plan of care. Impression 1. Chest wall pain ED Disposition - Plan for ED Patient: Instructions: ED Chest Wall Contusion Prescriptions: Naproxen [Naprosyn] 500 mg PO BID PRN #20 tab Prescription Printed Referrals: Jackie Ambriz PA [Primary Care Provider] -
[2020-10-16 11:57] LABS: Absolute Lymphocyte Count 1.31 X10^3/uL (0.83-4.51); Absolute Neutrophil Count 4.1 X10^3/uL (2.0-7.7); Basophil# 0.06 X10^3/uL; Eosinophil# 0.14 X10^3/uL; Eosinophils% 2.2 % (0-5); Hemoglobin 10.8 g/dL (13.0-16.5); Lymphocyte # 1.31 X10^3/ul (4.0); Lymphocyte % 20.9 % (19-41); Mean Corp Hgb Conc 30.9 g/dL (32-36); Mean Corpuscular Hgb 23.2 pg (27.0-32.0); Mean Corpuscular Volume 75.1 fL (80-94); Mean Platelet Vol. 8.8 fl (6.2-12.0); Monocyte# 0.66 X10^3/uL; Monocyte% 10.5 % (0-10); NRBC Flagged by Analyzer 0 % (0-5); Neutrophil # 4.07 X10^3/uL (2.7-7.7); Neutrophil % 64.9 % (47-70); Platelet Count 482 K/mm3 (150-450); RBC Distribution Width CV 18.9 % (11.6-14.6); RBC Distribution Width SD 50.3 fl (35.1-43.9); Red Blood Count 4.66 M/mm3 (4.6-6.2); White Blood Count 6.3 K/mm3 (4.4-11.0)
[2020-10-16] MEDS: Morphine 4 MG/ML Syringe IV (12:01)
[2020-10-16] MEDS: Ondansetron 4 MG/2 ML Vial IV (12:01)
--- NOTE | 2020-10-16 12:09 | CT_ITS ---
STUDY: CT CHEST WITHOUT CONTRAST REASON FOR EXAM: Male, 65 years old. BILATERAL RIB PAIN. HX OF HTN, HLD, APPY RADIATION DOSAGE (If Supplied By Facility): CTDIvol = ( 10.71 ) mGy, DLP = ( 398.95 ) mGycm TECHNIQUE: Transaxial imaging was performed without the administration of intravenous contrast material. Multiplanar coronal and sagittal images were reformatted. Individualized dose optimization techniques were used for this CT. COMPARISON: None. FINDINGS: Small benign-appearing bilateral axillary lymph nodes. Calcified granulomas in both lungs. Mild degree of emphysematous changes bilaterally. Minimal increased markings at the lung bases suggestive of mild linear scarring or atelectasis. There is no demonstrated pleural abnormality. There are calcifications of the coronary arteries. Calcified hilar and mediastinal lymph nodes. Normal hilar regions. Normal unenhanced pulmonary arteries. Normal aorta arch and descending thoracic aorta. There are degenerative changes of the thoracic spine. There is no demonstrated abnormality of the visualized upper abdomen. CT/Chest without Contrast IMPRESSION: Calcified old granulomatous disease. Mild increased markings at the lung bases suggestive of mild scarring. Electronically Signed: Rosendo Meade, at 12:30 EST , Service support ,
[2020-10-16 12:15] LABS: AST(SGOT) 5 U/L (15-37); Alanine Aminotransfer ALT/SGPT 13 U/L (16-61); Albumin, Serum 3.8 g/dL (3.2-5.0); Alkaline Phosphatase 105 U/L (45-117); Anion Gap 6 (5-15); BUN 11 mg/dL (7-18); BUN/Creat Ratio 10.7 RATIO (10-20); Calcium,Total 9.8 mg/dL (8.5-10.1); Chloride 108 mmol/L (98-107); Creatinine, Serum 1.03 mg/dL (0.70-1.30); EST Glomerular Filtration Rate 77 mL/min (>60); Est Glom Filt Rate - Afr Amer 94 mL/min (>60); Estimated Creatinine Clearance 74.24 ml/min; Glucose 90 mg/dL (74-106); Potassium 4.1 mmol/L (3.5-5.1); Protein, Total 7.8 g/dL (6.4-8.2); Sodium Level 140 mmol/L (136-145)
[2020-10-16 13:09] VITALS: BP 169/94; PULSE 88; RESP 16; O2SAT 94
== END 2020-10-16 13:10 | disposition home or self-care (01) ==
PROVIDERS: Emergency Provider Emergency Medicine; PCP Physician Assistant
DX: R07.89 Other chest pain (principal); I10 Essential (primary) hypertension; E78.5 Hyperlipidemia, unspecified; F03.90 Unspecified dementia, unspecified severity, without behavioral disturbance, psychotic disturbance, mood disturbance, and anxiety; F17.200 Nicotine dependence, unspecified, uncomplicated
CPT/HCPCS: 71250; 80053; 84484; 85025; 93005; 96374; 96375; 99285; A4216; J2405

== ENCOUNTER 2020-10-17 14:57 | Emergency (ER) | payer MEDICAID, SELFPAY ==
[2020-10-16 11:32] VITALS: BMI 21.4
[2020-10-17 14:58] VITALS: BP 141/73; PULSE 74; RESP 16; TEMP 36.6; O2SAT 97; BMI 27.1
--- NOTE | 2020-10-17 15:06 | ED.DCSUM_ITS ---
History of Present Illness Chief Complaint: Chest Other Informant: Patient Narrative: 64-year-old male with history of previous fall and seen twice in the ED before for bilateral rib pain. He states that the pain has been similar both of the past 2 visits. He is already had lab work and imaging to include a CT of the chest. There were no acute findings. Patient states he lives at the [facility]. He has not made follow-up with his primary care provider. He did not fill his prescription for Naprosyn which was given to him on his last visit. He denies any new or changing pain. Patient denies any new injury. Prior similar symptoms: Yes Recent Illness/Hospitalization: No Past Medical History - Allergies and Home Meds Allergies/Adverse Reactions: Allergies iodine Adverse Reaction (Verified 10/17/20 14:58) Rash GANDARA MY SKIN Primary Care Physician: Jackie Ambriz PA [Primary Care Provider] - Past Medical History: - - Hypertension, hyperlipidemia Surgical History: noncontributory Lives: Homeless Smoking Status: Current every day smoker Alcohol: None Drugs: None Review of Systems General: Denies: Chills, Fever, Sweats Eyes: Denies: Visual changes - bilaterally, Diplopia ENT: Denies: Rhinorrhea, Sore throat Cardiovascular: Reports: - - Bilateral lower rib pain.. Denies: Palpitations, Heart racing Respiratory: Denies: Dyspnea, Cough, Sputum Gastrointestinal: Denies: Abdominal pain, Nausea, Vomiting Genitourinary: Denies: Dysuria, Hematuria Musculoskeletal: Denies: Myalgias, Arthralgias, Neck pain Skin: Denies: Rash, Abscess Neurological: Denies: Headache, Weakness, Parasthesia, Numbness Physical Exam Vital Signs/Narrative: Vital Signs Temp Pulse Resp BP Pulse Ox 10/17/20 14:58 97.8 F 74 16 141/73 H 97 Inital Vital Signs reviewed: Yes General: Well nourished, No Acute Distress Head: Normocephalic, Atraumatic Eyes: Perrl, EOMI ENT: Moist mucous membranes, No rhinorrhea Cardiovascular: Regular rate, Regular rhythm Respiratory: No distress, CTA bilaterally, - - Tenderness to palpation left lower ribs without crepitance or ecchymosis. There is similar milder tenderness on the right lower ribs both are in the mid axillary line. Abdomen: Negative for: Soft, Nontender Back: Negative for: Nontender, Normal Inspection Extremities: Negative for: Nontender, No edema Skin: Negative for: Normal color, No rash Neurological: Negative for: Alert, Oriented x3 Psychological: Negative for: Normal affect, Normal Mood Diagnostic/Tx/Re-eval - Medical Decision Making 65-year-old male presenting for the third time with bilateral rib pain secondary to mechanical fall previously. He is a poor informant however he does state that he has not had any change in pain or new injury. He has already had imaging and lab work done. Patient's pain is clearly reproducible with both motion and to touch. His vital signs are normal and he is not tachycardic, tachypneic, febrile. He denies any cough that is new other than his other smoker's cough I do not believe he would benefit from more imaging and lab work. Patient is counseled that he will need to fill his medication and take it. He is also counseled to follow-up with his primary care provider. He is given return precautions. Impression: 1. Bilateral rib strain ED Disposition - Plan for ED Patient: Referrals: Jackie Ambriz PA [Primary Care Provider] -
[2020-10-17] MEDS: Lidocaine 5% Patch 1 PATCH TOPICAL (15:35)
== END 2020-10-17 15:55 | disposition home or self-care (01) ==
PROVIDERS: Emergency Provider Student in an Organized Health Care Education/Training Program; PCP Physician Assistant
DX: S29.011A Strain of muscle and tendon of front wall of thorax, initial encounter (principal); W19.XXXA Unspecified fall, initial encounter; Y93.9 Activity, unspecified; Y92.9 Unspecified place or not applicable; Y99.9 Unspecified external cause status; I10 Essential (primary) hypertension; F17.200 Nicotine dependence, unspecified, uncomplicated
CPT/HCPCS: 99284

== ENCOUNTER 2020-10-27 00:13 | Emergency (ER) | payer MEDICAID, SELFPAY ==
[2020-10-27 00:14] VITALS: BP 140/89; PULSE 77; RESP 16; TEMP 36.3; O2SAT 100; BMI 22.1
--- NOTE | 2020-10-27 00:30 | ED.DCSUM_ITS ---
History of Present Illness Chief Complaint: Other, Pain/Inj Informant: Patient Narrative: Stated he fell and injured his ribs about 10 days ago. He has been seen in the emergency department 3 times prior to tonight. He has not been take anything for pain mainly on the left posterior rib. He had lab work EKGs chest x-rays as well as CAT scan of the chest done that showed nothing acute. He has some mild pain on the right posterior rib as well but mainly on the left. It is pinpoint and reproducible. When asked why he is not taking pain medication he stated he is at the [facility] and they lock it up. He does have pain medication there however. He is unsure what it is. Denies any other symptoms. Current severity is mild. Worse by laying on it. Past Medical History - Allergies and Home Meds Allergies/Adverse Reactions: Allergies iodine Adverse Reaction (Verified 10/27/20 00:14) Rash GANDARA MY SKIN Primary Care Physician: Jackie Ambriz PA [Primary Care Provider] - Prior records reviewed: Yes Past Medical History: - - Reviewed Surgical History: noncontributory Smoking Status: Current every day smoker Drugs: None Review of Systems General: Denies: Chills, Fever, Sweats Eyes: Denies: Visual changes - bilaterally, Diplopia ENT: Denies: Rhinorrhea, Sore throat Cardiovascular: Denies: Chest pain, Palpitations Respiratory: Denies: Dyspnea, Cough, Dyspnea on exertion Gastrointestinal: Denies: Abdominal pain, Nausea, Vomiting, Diarrhea, Melena, Hematochezia Genitourinary: Denies: Dysuria, Hematuria, Frequency Musculoskeletal: Reports: Back pain - In the left posterior rib. Denies: Extremity Pain Skin: Denies: Rash, Wounds Neurological: Denies: Headache, Weakness, Numbness Physical Exam Vital Signs/Narrative: Vital Signs Temp Pulse Resp BP Pulse Ox 10/27/20 00:14 97.3 F L 77 16 140/89 H 100 General: Well nourished, Well developed, No Acute Distress Head: Normocephalic, Atraumatic Eyes: Perrl, EOMI ENT: Moist mucous membranes, No rhinorrhea Neck: Supple, Nontender Cardiovascular: Regular rate, Regular rhythm, No murmurs Respiratory: No distress, CTA bilaterally, Chest nontender Abdomen: Soft, Nontender, Nondistended, Normal bowel sounds Back: Normal Inspection, - - Point tenderness left posterior lateral rib. No swelling or deformity. Right side normal. Extremities: Nontender, No edema Skin: Normal color, No rash Neurological: Alert, Oriented x3, Cranial nerves II-XII grossly intact, Normal Strength, Normal Sensation Psychological: Normal affect, Normal Mood Diagnostic/Tx/Re-eval - Medical Decision Making Patient reassured. At this time he has a rib contusion that is reproducible. It will take several weeks for this to heal. Instructed to use [id number] pain medicine. Given injection of Toradol here for his pain. I do not feel he needs repeat work-up as this is already been done multiple times. ED Disposition - Plan for ED Patient: Disposition: Home or Assisted Living Diagnosis: Rib contusion Instructions: ED Contusion, Rib Referrals: Jackie Ambriz, PA [Primary Care Provider] -
[2020-10-27] MEDS: Ketorolac 15 MG/ML Vial IM (00:47)
[2020-10-27 01:24] VITALS: PULSE 88; RESP 16; O2SAT 98
== END 2020-10-27 01:25 | disposition home or self-care (01) ==
PROVIDERS: Emergency Provider Emergency Medicine; PCP Physician Assistant
DX: S20.212A Contusion of left front wall of thorax, initial encounter (principal); X58.XXXA Exposure to other specified factors, initial encounter; Y93.9 Activity, unspecified; Y92.9 Unspecified place or not applicable; Y99.9 Unspecified external cause status; F17.200 Nicotine dependence, unspecified, uncomplicated
CPT/HCPCS: 96372; 99284

== ENCOUNTER 2020-11-25 20:52 | Emergency (ER) | payer MEDICAID, SELFPAY ==
[2020-11-25 20:54] VITALS: BP 134/89; PULSE 79; RESP 15; TEMP 36.5; O2SAT 97; BMI 28.4
--- NOTE | 2020-11-25 21:00 | ED.DCSUM_ITS ---
History of Present Illness Chief Complaint: Fall Informant: Patient Narrative: 65-year-old male presenting for evaluation of head injury. He states he was drinking at a bar, but cannot remember which bar he was drinking up. The last thing he remembers is hitting his head. Patient denies any dizziness or lightheadedness. He states he has headache pain adjacent to laceration above his left eye. He is not on any blood thinners. He states he is not an everyday drinker but does drink a few shots and a beer fairly frequently. He denies any other injury at this time. Last tetanus unknown. Past Medical History - Allergies and Home Meds Allergies/Adverse Reactions: Allergies iodine Adverse Reaction (Verified 10/27/20 00:14) Rash GANDARA MY SKIN Past Medical History: - - Anemia Surgical History: noncontributory Lives: Alone Smoking Status: Current every day smoker Alcohol: Heavy Drugs: None Review of Systems General: Denies: Chills, Fever, Sweats Eyes: Denies: Visual changes - bilaterally, Diplopia ENT: Denies: Rhinorrhea, Sore throat Cardiovascular: Denies: Chest pain, Palpitations Respiratory: Denies: Dyspnea, Cough, Dyspnea on exertion Gastrointestinal: Denies: Abdominal pain, Nausea, Vomiting, Diarrhea, Melena, Hematochezia Genitourinary: Denies: Dysuria, Hematuria, Frequency Musculoskeletal: Denies: Myalgias, Arthralgias, Neck pain Skin: Reports: - - Laceration over left eye. Denies: Abscess Neurological: Reports: Headache. Denies: Parasthesia, Numbness Psych: Denies: Depression, Anxiety Physical Exam Vital Signs/Narrative: Vital Signs Temp Pulse Resp BP Pulse Ox 11/25/20 20:54 97.7 F L 79 15 134/89 H 97 General: Unkempt, No Acute Distress Head: Normocephalic, - - Stellate laceration noted over left supraorbital ridge ENT: Moist mucous membranes, No rhinorrhea Cardiovascular: Regular rate, Regular rhythm Respiratory: No distress, CTA bilaterally Extremities: Nontender, No edema Skin: Normal color, No rash, - - Stellate laceration over left eye without skull deformity or depression. No active bleeding. This measures about 2 x 2 cm. Neurological: Alert, Oriented x3, Cranial nerves II-XII grossly intact Psychological: Normal affect, Normal Mood Diagnostic/Tx/Re-eval Clinical Impression(s) from Imaging Studies Brain CT 11/25/20 21:05 IMPRESSION: 1. Left frontal soft tissue swelling and laceration. Otherwise no acute findings. 2. Microvascular ischemic changes. Atrophy. Electronically Signed: Karissa Whittaker MD at 22:41 EST Tel , Service support , Cervical Spine CT 11/25/20 21:09 IMPRESSION: 1. No evidence of cervical trauma. 2. Mild degenerative changes of the cervical spine. Electronically Signed: Karissa Whittaker MD at 22:46 EST Tel , Service support , Chest X-Ray 11/25/20 21:45 IMPRESSION: Normal x-ray examination of the chest. Electronically Signed: Karissa Whittaker MD at 22:47 EST Tel , Service support , Laboratory Data 11/25/20 11/25/20 11/25/20 21:18 21:18 21:18 WBC 6.5 RBC 4.50 L Hgb 10.1 L Hct 34.2 L MCV 76.0 L MCH 22.4 L MCHC 29.5 L RDW Std Deviation 52.9 H RDW Coeff of Cassandra 19.4 H Plt Count 358 MPV 8.7 Immature Gran % (Auto) 0.200 Neut % (Auto) 49.9 Lymph % (Auto) 35.7 Stanley % (Auto) 12.8 H Eos % (Auto) 0.2 Baso % (Auto) 1.2 H Absolute Neuts (auto) 3.2 Absolute Lymphs (auto) 2.32 Nucleated RBC % 0 Sodium 141 Potassium 3.8 Chloride 110 H Carbon Dioxide 23.0 Anion Gap 8 BUN 14 Creatinine 1.21 Estim Creat Clear Calc 68.59 Est GFR (MDRD) Af Amer 78 Est GFR (MDRD) Non-Af 64 BUN/Creatinine Ratio 11.6 Glucose 82 Calcium 8.8 Total Bilirubin 0.10 L AST 10 L ALT 14 L Alkaline Phosphatase 88 Troponin I < 0.015 Total Protein 7.2 Albumin 3.6 Globulin 3.6 Albumin/Globulin Ratio 1.0 Ethyl Alcohol 321.0 H* - Rhythm Strip Rhythm Strip: Sinus Rhythm Rate: 74 - EKG Initial EKG Interpretation: Sinus Rhythm, No Acute Injury Pattern - Medical Decision Making Patient seen and evaluated on arrival. Vital signs are stable and he is afebrile. He appears to be intoxicated. He admits to drinking alcohol this evening. After discussion with him he did drink more than 3 drinks. Is unsure what the circumstances which made him fall were. I did obtain EKG on arrival which showed a normal sinus rhythm without signs of ischemic change as interpreted by myself. Chest x-ray is interpreted by myself and the radiologist shows no acute process. CT brain and cervical spine are negative for acute findings. Since hemoglobin is at its baseline. Renal function and electrolytes are within normal limit. Patient had laceration repair of his forehead please see procedure note. Patient is ambulated in the hallway stable gait. Patient will be discharged back to the [facility] when a ride becomes available. Impression: 1. EtOH intoxication 2. Scalp laceration 2 x 2 cm Procedures - Lacerations No standard instances Depth: Skin Shape: Stellate Prep: Sterile Conditions, Chlorhexadine Laceration repair: Lidocaine with epi Irrigated (ml): 500 Number of Sutures/Denison: 3 Suture Information: Ethilon, 6-0 ED Disposition - Plan for ED Patient: Instructions: ED Alcohol Intoxication, ED Laceration: All Closures
--- NOTE | 2020-11-25 21:05 | CT_ITS ---
STUDY: CT BRAIN WITHOUT CONTRAST REASON FOR EXAM: Male, 65 years old. UNWITNESSED FALL/HEMATOMA LT FOREHEAD RADIATION DOSAGE (If Supplied By Facility): CTDIvol = ( 44.99 ) mGy, DLP = ( 812.98 ) mGycm TECHNIQUE: Transaxial CT imaging of the brain was performed without administration of intravenous contrast material. Individualized dose optimization techniques were used for this CT. COMPARISON: 08/25/2020. FINDINGS: Left frontal soft tissue swelling and laceration. Normal calvarium. There is moderate cerebral atrophy with widening of the extra-axial spaces and ventricular dilatation. There are areas of decreased attenuation within the white matter tracts of the supratentorial brain, consistent with microvascular disease changes. Normal basal ganglia and thalami. Normal brainstem. Normal cerebellum. There is no intracranial hemorrhage. There are no findings of an acute ischemic infarction. Normal visualized paranasal sinuses. CT/Brain/Head without Contrast IMPRESSION: 1. Left frontal soft tissue swelling and laceration. Otherwise no acute findings. 2. Microvascular ischemic changes. Atrophy. Electronically Signed: Karissa Whittaker MD at 22:41 EST Tel , Service support ,
--- NOTE | 2020-11-25 21:05 | EKG12_ITS ---
Test Reason : FALL Blood Pressure : / mmHG Vent. Rate : 074 BPM Atrial Rate : 074 BPM P-R Int : 134 ms QRS Dur : 074 ms QT Int : 400 ms P-R-T Axes : 052 041 066 degrees QTc Int : 444 ms Normal sinus rhythm Normal ECG Confirmed by NILTON OCONNOR, ANNE ([id number]), primer expeditor and drier YOSSI LANCASTER ([id number]) on 11/29/2020 6:52:36 AM Referred By: JULIANA Confirmed By:ANNE CALLAWAY MD
--- NOTE | 2020-11-25 21:09 | CT_ITS ---
STUDY: CT CERVICAL SPINE WITHOUT CONTRAST REASON FOR EXAM: Male, 65 years old. UNWITNESSED FALL/HEMATOMA LT FOREHEAD RADIATION DOSAGE (If Supplied By Facility): CTDIvol = ( 24.02 ) mGy, DLP = ( 499.37 ) mGycm TECHNIQUE: High resolution transaxial imaging was performed without contrast material. Sagittal and coronal images were reconstructed. Individualized dose optimization techniques were used for this CT. COMPARISON: None FINDINGS: Normal craniovertebral junction. Normal anterior atlantoaxial articulation. Normal odontoid process. Normal cervical lordosis. Normal vertebral bodies and posterior osseous elements. C2-3: Normal endplates. Normal disc height and morphology. Normal central canal and intervertebral neuroforamina. Mild facet hypertrophy. C3-4: Normal endplates. Normal disc height and morphology. Normal central canal and intervertebral neuroforamina. C4-5: Normal endplates. Normal disc height and morphology. Calcification of the annulus fibrosis. Normal central canal and intervertebral neuroforamina. C5-6: Normal endplates. Normal disc height and morphology. Normal central canal and intervertebral neuroforamina. C6-7: Normal endplates. Disc space narrowing. Normal central canal. Severe left foraminal stenosis due to uncinate hypertrophy. C7-T1: Normal endplates. Normal disc height and morphology. Normal central canal and intervertebral neuroforamina. Normal visualized soft tissue structures. CT/Spine Cervical without Contras IMPRESSION: 1. No evidence of cervical trauma. 2. Mild degenerative changes of the cervical spine. Electronically Signed: Karissa Whittaker MD at 22:46 EST Tel , Service support ,
[2020-11-25 21:27] LABS: Absolute Lymphocyte Count 2.32 X10^3/uL (0.83-4.51); Absolute Neutrophil Count 3.2 X10^3/uL (2.0-7.7); Basophil# 0.08 X10^3/uL; Basophil% 1.2 % (0-1); Eosinophil# 0.01 X10^3/uL; Eosinophils% 0.2 % (0-5); Hematocrit 34.2 % (40-54); Hemoglobin 10.1 g/dL (13.0-16.5); Lymphocyte # 2.32 X10^3/ul (4.0); Lymphocyte % 35.7 % (19-41); Mean Corp Hgb Conc 29.5 g/dL (32-36); Mean Corpuscular Hgb 22.4 pg (27.0-32.0); Mean Platelet Vol. 8.7 fl (6.2-12.0); Monocyte# 0.83 X10^3/uL; Monocyte% 12.8 % (0-10); NRBC Flagged by Analyzer 0 % (0-5); Neutrophil # 3.24 X10^3/uL (2.7-7.7); Neutrophil % 49.9 % (47-70); Platelet Count 358 K/mm3 (150-450); RBC Distribution Width CV 19.4 % (11.6-14.6); RBC Distribution Width SD 52.9 fl (35.1-43.9); White Blood Count 6.5 K/mm3 (4.4-11.0)
[2020-11-25] MEDS: Diphth,Pertuss(Acell),Tet Vac 0.5 ML Vial IM (21:39)
[2020-11-25] MEDS: Lidocaine/Epi/Tetracaine 50 ML 1 APPLIC TOPICAL (21:39)
--- NOTE | 2020-11-25 21:45 | RAD_ITS ---
STUDY: X-RAY CHEST REASON FOR EXAM: Male, 65 years old. UNWITNESSED FALL. +ETOH. PT WAS WALKING HOME FROM THE BAR. REPORTS HE TRIPPED. TECHNIQUE: Single AP portable view of the chest. COMPARISON: 10/14/2020. FINDINGS: The lungs are clear and expanded. There is no demonstrated pleural abnormality. Normal size heart. Normal mediastinum and graeme. Normal visualized pulmonary arteries. Normal visualized aortic arch and descending thoracic aorta. Normal visualized thoracic spine. Normal visualized ribs, clavicles, and shoulders. There is no demonstrated abnormality of the visualized soft tissue structures of the upper abdomen. RAD/Chest 1 View (Portable) IMPRESSION: Normal x-ray examination of the chest. Electronically Signed: Karissa Whittaker MD at 22:47 EST Tel , Service support ,
[2020-11-25 21:47] LABS: AST(SGOT) 10 U/L (15-37); Alanine Aminotransfer ALT/SGPT 14 U/L (16-61); Albumin, Serum 3.6 g/dL (3.2-5.0); Alkaline Phosphatase 88 U/L (45-117); Anion Gap 8 (5-15); BUN 14 mg/dL (7-18); BUN/Creat Ratio 11.6 RATIO (10-20); Calcium,Total 8.8 mg/dL (8.5-10.1); Chloride 110 mmol/L (98-107); Creatinine, Serum 1.21 mg/dL (0.70-1.30); EST Glomerular Filtration Rate 64 mL/min (>60); Est Glom Filt Rate - Afr Amer 78 mL/min (>60); Estimated Creatinine Clearance 68.59 ml/min; Globulin 3.6 g/dL (2.2-4.2); Glucose 82 mg/dL (74-106); Potassium 3.8 mmol/L (3.5-5.1); Protein, Total 7.2 g/dL (6.4-8.2); Sodium Level 141 mmol/L (136-145)
[2020-11-25 22:23] VITALS: BP 125/77; PULSE 73; RESP 23
[2020-11-25 23:18] VITALS: BP 128/56; PULSE 65; RESP 24; O2SAT 97
[2020-11-25] MEDS: Lidocaine 2% /Epi 1:100 (20ml) 20 ML VIAL 5 ML INFILT ×2 (23:53→23:55)
[2020-11-26 00:15] VITALS: BP 128/86; PULSE 65; RESP 24; O2SAT 97
== END 2020-11-26 00:23 | disposition home or self-care (01) ==
PROVIDERS: Emergency Provider Student in an Organized Health Care Education/Training Program
DX: S01.112A Laceration without foreign body of left eyelid and periocular area, initial encounter (principal); W19.XXXA Unspecified fall, initial encounter; Y93.89 Activity, other specified; Y92.89 Other specified places as the place of occurrence of the external cause; Y99.8 Other external cause status; F10.129 Alcohol abuse with intoxication, unspecified; Y90.9 Presence of alcohol in blood, level not specified; F17.200 Nicotine dependence, unspecified, uncomplicated
CPT/HCPCS: 12011; 70450; 71045; 72125; 80053; 82077; 84484; 85025; 90471; 90715; 93005; 96360; 99284; J7030; A4216

== ENCOUNTER 2022-02-14 08:05 | Emergency (ER) | payer MEDICAID, SELFPAY ==
[2022-02-14 08:06] VITALS: BP 134/84; PULSE 77; RESP 18; TEMP 36.1; O2SAT 97; BMI 28.5
--- NOTE | 2022-02-14 08:53 | EDS_ITS ---
HPI HPI - Fall History of Present Illness Chief Complaint: Fall Informant: patient Occured/Mechanism Occurred: Today Mechanism/Context: Yes same level fall Usually ambulates: Without assistance Pain/Injury Pain Location: face (Bridge of nose) and upper extremity (Bilateral hands) Quality of Pain: Dull Associated Symptoms Associated Symptoms: Negative for Parasthesias, Weakness, Loss of function, Inability to ambulate, Loss of consciousness and Amnesia Narrative Narrative: Patient presents after a fall that occurred this morning. Patient fell while taking out the garbage today. Patient complains of pain to his bilateral hands. Patient has abrasions over both hands as well as the bridge of his nose. Patient states the bleeding stopped after several minutes of p ressure. Patient is unsure of his last tetanus. Patient admits to a history of alcohol abuse and has been drinking today. Patient does not want detox at this time. Patient does not think he lost consciousness. Tetanus Immunization: Unknown [facility] Medical History (Updated 02/14/22 @ 10:[address] Riley eDlgado DO) Ulcerative colitis Home Medications Lisinopril 1 tab PO DAILY 10/16/20 [History Last Taken Unknown] Allergy/AdvReac Type Severity Reaction Status Date / Time iodine AdvReac Rash Verified 02/14/22 08:08 Surgical History no surgical history no surgical history Social History (Updated 02/14/22 @ 08:[address] Riley Delgado DO) Smoking Status: Current every day smoker tobacco type: cigarettes alcohol intake: current substance use type: marijuana ROS ROS ED Constitutional Constitutional ED: Denies chills or fever(s) Eyes Eyes: Denies blurry vision or change in vision ENT ENT ED: Denies rhinorrhea or sore throat Cardiovascular Cardiovascular: Denies chest pain or palpitations Respiratory/Chest Respiratory/Chest: Denies cough or dyspnea Gastrointestinal Gastrointestinal: Denies nausea or vomiting Genitourinary Genitourinary ED: Denies dysuria or hematuria Musculoskeletal Musculoskeletal: Denies back pain or neck pain Integumentary Reports Abrasions; Denies abscess or rash Neurologic Neurologic: Denies headache(s) or weakness Allergic/Immunologic Allergic/Immunologic ED: Denies mouth swelling or urticaria EXAM Physical Exam Const Vital Signs: 02/14/22 08:06 Temperature 97 F L Temperature Source Temporal Pulse Rate 77 Respiratory Rate 18 Blood Pressure 134/84 H Blood Pressure Mean 100 Pulse Ox 97 Oxygen Delivery Method Room Air Positive well nourished and well developed General Appearance ED: well developed and NAD HEENT HEENT Narrative: There is a superficial abrasion over the bridge of the nose. There is no septal deviation or septal hematoma. There is no edema or ecchymosis. There is no bony crepitance or step-off. Eyes PERRL and EOMs intact bilaterally Neck full ROM and supple General: Negative for tenderness Chest Wall inspection of chest normal and palpation of chest normal Resp normal respiratory effort and clear to auscultation bilaterally Cardio regular rate and regular rhythm GI non-tender Palpation: soft Extremity Extremity Narrative: There is tenderness, edema, and ecchymosis over the distal fifth metacarpal. There is no obvious deformity noted. There is good range of motion. There is superficial abrasions over the dorsal aspect of both hands. Radial pulses are equal bilateral. Sensation was intact to light touch in the radial, median, and ulnar areas. Strength is 5/5 in the radial, median, and ulnar areas. Psych mental status grossly normal Skin Trauma: abrasion MDM MDM MDM Narrative Medical decision making narrative: Patient was given a tetanus booster here. X- rays of the right hand were obtained. There are 3 views. On my interpretation, there is no acute fracture. There is no dislocation. There is no soft tissue swelling. Radiologist also interpreted the x-rays and agrees. X-rays of the l eft hand were obtained. There are 3 views. On my interpretation, there is no acute fracture. There is no dislocation. There is some mild soft tissue swelling. There are some degenerative changes noted. Radiologist also interpreted the x-rays and agrees. Bacitracin dressings were applied. Patient was instructed to ice and elevate the hands. Patient was instructed to follow- up with his primary care physician in 5 to 7 days. Patient understood and was agreeable with the plan. All questions were answered. Radiography Diagnostic Testing: Clinical Impression(s) from Imaging Studies Hand X-Ray 02/14/22 08:57 IMPRESSION: No acute abnormality is seen. Electronically Signed: Rosendo Meade MD at 9:43 EDT , Hand X-Ray 02/14/22 08:57 IMPRESSION: Degenerative joint disease of the hand, as described above. Electronically Signed: Rosendo Meade MD at 9:43 EDT , Discharge Plan Triage Chief Complaint: Fall ED Provider: Riley Delgado Dx/Rx/DC Orders Clinical Impression: Fall, Contusion of left hand, initial encounter, Contusion of right hand, initial encounter, Multiple abrasions Instructions: ED Soft Tissue Contusion, ED Hand Contusion, ED Skin Avulsion Prescriptions: No Action Lisinopril 1 tab PO DAILY RF: 0 Primary Care Provider: Care Physician,No Primary Referrals: Citlali Wiggins [NON-STAFF] - 5-7 Days Care Physician,No Primary [Primary Care Provider] - Disposition Disposition: Home, Self Care
--- NOTE | 2022-02-14 08:57 | RAD_ITS ---
STUDY: X-RAY - LEFT HAND REASON FOR EXAM: Male, 66 years old. Injury/Pain TECHNIQUE: 3 view(s) of the hand. COMPARISON: None. FINDINGS: Normal radiocarpal articulation. Normal distal radioulnar joint. Normal visualized carpal bones. Normal carpal articulations Normal carpometacarpal articulation of the thumb. Normal second through fifth carpometacarpal joints. Normal metacarpi. Normal metacarpophalangeal joint of the thumb. Normal interphalangeal joint of the thumb. Normal proximal and distal phalanges of the thumb. Normal metacarpophalangeal joints of the second through fifth fingers. There is diffuse articular joint space narrowing of the proximal and distal interphalangeal joints of the second through fifth fingers, but without erosive changes or periarticular soft tissue swelling. Normal phalanges of the second through fifth fingers. The soft tissue structures are unremarkable. RAD/Hand Min 3 Views IMPRESSION: Degenerative joint disease of the hand, as described above. Electronically Signed: Rosendo Meade MD at 9:43 EDT ,
--- NOTE | 2022-02-14 08:57 | RAD_ITS ---
STUDY: X-RAY - RIGHT HAND REASON FOR EXAM: Male, 66 years old. Pain due to a fall. Abrasions overlying the metacarpals. TECHNIQUE: view(s) of the hand. COMPARISON: None. FINDINGS: Normal radiocarpal articulation. Normal distal radioulnar joint. Normal visualized carpal bones. Normal carpal articulations Normal carpometacarpal articulation of the thumb. Normal second through fifth carpometacarpal joints. Normal metacarpi. Normal metacarpophalangeal joint of the thumb. Normal interphalangeal joint of the thumb. Normal proximal and distal phalanges of the thumb. There is degenerative arthrosis of the metacarpophalangeal (MCP) joints. Normal proximal and distal interphalangeal joints of the second through fifth fingers. Normal phalanges of the second through fifth fingers. The soft tissue structures are unremarkable. RAD/Hand Min 3 Views IMPRESSION: No acute abnormality is seen. Electronically Signed: Rosendo Meade MD at 9:43 EDT ,
[2022-02-14] MEDS: Diphth,Pertuss(Acell),Tet Vac 0.5 ML Vial IM (09:44)
--- NOTE | 2022-02-14 10:26 | CM.ED ---
SW Note Referral Source: Case Find Referral Reason: No Primary Care Physician (PCP) SW reviewed chart and noted that patient has no PCP. SW provided patient with list of [facility] and [facility] Physician List for reference. SW also provided patient with handout ?Where to go When?. No other issues or concerns voiced at this time. SW remains available for any additional needs. Plan: Provided patient with PCP information Libia CALABRESE
--- NOTE | 2022-02-14 10:40 | NURSING ---
PT WAS REDIRECTED SEVERAL TIMES BACK TO HIS ROOM TO WAIT FOR HIS RESULT. AT THIS TIME PT STATED TO MAIL THEM AND LEFT THE FACILITY
== END 2022-02-14 13:33 | disposition left against medical advice (07) ==
PROVIDERS: Emergency Provider Emergency Medicine; Visit Provider Emergency Medicine
DX: S60.222A Contusion of left hand, initial encounter (principal); S60.221A Contusion of right hand, initial encounter; S60.512A Abrasion of left hand, initial encounter; S60.511A Abrasion of right hand, initial encounter; S00.31XA Abrasion of nose, initial encounter; W18.30XA Fall on same level, unspecified, initial encounter; Y93.89 Activity, other specified; F17.210 Nicotine dependence, cigarettes, uncomplicated
CPT/HCPCS: 73130; 90715; 99282